=== PATIENT | male | born 1960 | race Caucasian/White ===

== ENCOUNTER 2017-04-02 06:17 | Inpatient (IN) | payer OTHER ==
[~2017-04-02] VITALS: Ht 182.9 cm; Wt 92.0 kg
[~2017-04-02 06:17] MED LIST: ALBU18HF INH; IPRA4AER INH; LOSA25TA5 PO; TIOT18CA INH
[2017-04-02] MEDS ORDERED: VANCOMYCIN 1,000 MG ONE (06:33)
[2017-04-02] MEDS ORDERED: BUPIVACAINE/PF 0.5% ONE (06:33)
[2017-04-02] MEDS ORDERED: THROMBIN 20,000 UNIT VIAL TP ONE (06:33)
[2017-04-02] MEDS ORDERED: EPINEPHRINE 1 MG/ML, 1ML ONE (06:33)
[2017-04-02] MEDS ORDERED: TRANEXAMIC ACID 100 MG/ML, 10ML ONE (06:33)
[2017-04-02] MEDS ORDERED: LACTATED RINGERS 1,000 ML IV SCH (06:52)
[2017-04-02 06:56] VITALS: BP 122/85
[2017-04-02] MEDS ORDERED: LIDOCAINE 1%, 2ML SQ PRN (07:00)
[2017-04-02] MEDS ORDERED: COMBIVENT INH (07:14)
[2017-04-02] MEDS ORDERED: CARV12.52 PO (07:14)
[2017-04-02] MEDS ORDERED: LOSARTAN/HCT PO (07:14)
[2017-04-02] MEDS ORDERED: HYDR-3240 PO (07:14)
[2017-04-02] MEDS ORDERED: UMEC1DIS INH (07:14)
[2017-04-02] MEDS ORDERED: FENTANYL PF 100 MCG/2ML ONE ×4 (07:20→10:00)
[2017-04-02] MEDS ORDERED: MIDAZOLAM 1 MG/ML, 2ML ONE (07:21)
[2017-04-02] MEDS ORDERED: CEFAZOLIN 1,000 MG ONE ×2 (07:23)
[2017-04-02] MEDS ORDERED: PROPOFOL 10 MG/ML, 20ML ONE (07:23)
[2017-04-02] MEDS ORDERED: ROCURONIUM 10 MG/ML ONE (07:23)
[2017-04-02] MEDS ORDERED: VANCOMYCIN PER PHARMACY MC PRN (07:30)
[2017-04-02] MEDS ORDERED: VANCOMYCIN 1,600 MG in SODIUM CHLORIDE 0.9% 250 ML IV ONE (07:30)
[2017-04-02] MEDS ORDERED: ACETAMINOPHEN 325 MG TABLET PO PRN (08:00)
[2017-04-02] MEDS ORDERED: PROMETHAZINE 25 MG/ML, 1ML IV PRN (08:00)
[2017-04-02] MEDS ORDERED: ONDANSETRON 2MG/ML, 2ML IVPush PRN ×2 (08:00→14:00)
[2017-04-02] MEDS ORDERED: PNEUMOCOCCAL 23 VACCINE IM-VACC ONE (08:00)
[2017-04-02] MEDS ORDERED: OXYcodone 5 MG/5 ML ORAL.SOL UDC PO PRN (08:00)
[2017-04-02] MEDS ORDERED: ALBUTEROL SULFATE 2.5 MG/3 ML NPPB PRN (08:00)
[2017-04-02] MEDS ORDERED: LABETALOL 5MG/ML, 20ML IV PRN (08:00)
[2017-04-02] MEDS ORDERED: MEPERIDINE/PF 25MG/0.5ML IVPush PRN (08:00)
[2017-04-02] MEDS ORDERED: hydrALAzine 20 MG/ML, 1ML IV PRN (08:00)
[2017-04-02] MEDS ORDERED: METOPROLOL 1 MG/ML, 5ML ONE (08:40)
[2017-04-02] MEDS ORDERED: NEOSTIGMINE 1 MG/ML, 10ML ONE (08:58)
[2017-04-02] MEDS ORDERED: GLYCOPYRROLATE 0.4 MG/2 ML, 2ML ONE (08:58)
[2017-04-02] MEDS ORDERED: HYDROmorphone 1 MG/ML, 1ML ONE ×3 (10:00→11:27)
[2017-04-02] MEDS: HYDROmorphone 1 MG/ML, 1ML IV PRN ×5 (10:01→11:29)
[2017-04-02] MEDS: FENTANYL PF 100 MCG/2ML IV PRN ×2 (10:05→10:20)
[2017-04-02] MEDS ORDERED: ONDANSETRON 2MG/ML, 2ML ONE (10:11)
[2017-04-02] MEDS ORDERED: OXYcodone 5 MG/5 ML ORAL.SOL UDC ONE (11:02)
[2017-04-02] MEDS ORDERED: ACETAMINOPHEN 650 MG/20.3 ML UDC ONE (11:02)
[2017-04-02] MEDS ORDERED: TRANEXAMIC ACID 1,000 MG in SODIUM CHLORIDE 0.9% 100 ML IVPB ONE (13:00)
[2017-04-02] MEDS ORDERED: OXYcodone IR 5MG TABLET PO PRN (13:30)
[2017-04-02] MEDS ORDERED: DIAZEPAM 5 MG TABLET PO PRN (13:30)
[2017-04-02] MEDS ORDERED: KETOROLAC 30 MG/1 ML IV PRN (13:30)
[2017-04-02] MEDS ORDERED: ACETAMINOPHEN 500 MG TABLET PO PRN (13:30)
[2017-04-02] MEDS ORDERED: DEXAMETHASONE 6 MG in SODIUM CHLORIDE 0.9% 50 ML IV PRN (13:30)
[2017-04-02] MEDS ORDERED: SODIUM CHLORIDE 0.9% 1,000 ML IV SCH (13:30)
[2017-04-02] MEDS ORDERED: SENNA/DOCUSATE TABLET PO PRN (13:30)
[2017-04-02] MEDS: NICOTINE 21 MG/24 HR PATCH.TD24 TD SCH (13:48)
[2017-04-02] MEDS ORDERED: BISACODYL 10 MG SUPP PR PRN (14:00)
[2017-04-02] MEDS: ALBUTEROL MC SCH ×2 (14:00→20:48)
[2017-04-02] MEDS ORDERED: ONDANSETRON ODT 4 MG PO PRN (14:00)
[2017-04-02] MEDS ORDERED: SCOPOLAMINE 1MG PATCH TD SCH (14:00)
[2017-04-02] MEDS ORDERED: LORazepam 2 MG/ML, 1ML IV PRN (14:00)
[2017-04-02] MEDS ORDERED: PROMETHAZINE 25 MG SUPP PR PRN (14:00)
[2017-04-02] MEDS ORDERED: DIPHENHYDRAMINE 25 MG CAPSULE PO PRN (14:00)
[2017-04-02] MEDS ORDERED: MAGNESIUM HYDROXIDE 8%, 30ML UDC PO PRN (14:00)
[2017-04-02] MEDS ORDERED: morphine SULFATE 10 MG/ML, 1ML IV PRN (14:00)
[2017-04-02] MEDS: IPRATROPIUM MC SCH ×2 (14:00→20:48)
[2017-04-02] MEDS ORDERED: LORazepam 1MG TABLET PO PRN (14:00)
[2017-04-02] MEDS ORDERED: ALUMINUM/MAG/SIMETHICONE 30 ML UDC PO PRN (14:00)
[2017-04-02] MEDS ORDERED: ZOLPIDEM 5MG TABLET PO PRN (14:00)
[2017-04-02] MEDS ORDERED: PROMETHAZINE 25 MG/ML, 1ML IM PRN (14:00)
[2017-04-02 14:18] VITALS: BP 111/73
[2017-04-02] MEDS: POTASSIUM CHLORIDE 20 MEQ in D5%-0.45% NACL 1,000 ML IV SCH ×2 (15:08→20:56)
[2017-04-02] MEDS ORDERED: CEFAZOLIN PMX 2GM/100ML 100 ML IVPB SCH (16:00)
[2017-04-02] MEDS: CEFAZOLIN 2,000 MG in DEXTROSE 5% 50 ML IVPB SCH ×2 (16:06→23:49)
[2017-04-02] MEDS: OXYcodone IR 5MG TABLET PO PRN ×2 (16:06→20:51)
[2017-04-02] MEDS: CARVEDILOL 12.5 MG TABLET PO SCH (17:20)
[2017-04-02] MEDS: ASPIRIN 325 MG TABLET EC PO SCH (17:20)
[2017-04-02 19:38] VITALS: BP 125/76
[2017-04-02] MEDS: SODIUM CHLORIDE FLUSH 10ML SYR IVF SCH (20:48)
[2017-04-02] MEDS: DOCUSATE 100 MG CAPSULE PO SCH (20:51)
[2017-04-02] MEDS: PREGABALIN 75 MG CAPSULE PO SCH (20:51)
[2017-04-02 23:30] VITALS: BP 117/74
[2017-04-03] MEDS: OXYcodone IR 5MG TABLET PO PRN ×4 (02:51→18:07)
[2017-04-03 03:52] VITALS: BP 131/77
[2017-04-03] MEDS: ALBUTEROL MC SCH ×3 (04:01→22:00)
[2017-04-03] MEDS: IPRATROPIUM MC SCH ×3 (04:01→22:00)
[2017-04-03 04:59] LABS: HEMATOCRIT 38.6 % (39.2-51.8); HEMOGLOBIN 12.9 g/dL (13.7-18.0)
[2017-04-03] MEDS: CARVEDILOL 12.5 MG TABLET PO SCH ×2 (05:44→18:07)
[2017-04-03] MEDS: ASPIRIN 325 MG TABLET EC PO SCH ×2 (05:44→18:07)
[2017-04-03 06:45] VITALS: BP 109/68
[2017-04-03 07:48] VITALS: BP 119/81
[2017-04-03] MEDS: MULTIVITAMINS/MINERALS TABLET PO SCH (07:52)
[2017-04-03] MEDS: DOCUSATE 100 MG CAPSULE PO SCH ×2 (07:52→21:06)
[2017-04-03] MEDS: LOSARTAN 25MG TABLET PO SCH (07:52)
[2017-04-03] MEDS: PREGABALIN 75 MG CAPSULE PO SCH ×2 (07:52→21:06)
[2017-04-03] MEDS: ELLIPTA INH SCH (08:00)
[2017-04-03] MEDS: POTASSIUM CHLORIDE 20 MEQ in D5%-0.45% NACL 1,000 ML IV SCH ×2 (11:17→19:33)
[2017-04-03] MEDS: SODIUM CHLORIDE FLUSH 10ML SYR IVF SCH ×2 (11:28→21:00)
[2017-04-03] MEDS: NICOTINE 21 MG/24 HR PATCH.TD24 TD SCH (11:28)
[2017-04-03 14:27] VITALS: BP 114/58
[2017-04-03] MEDS ORDERED: KETOROLAC 30 MG/1 ML IVPush PRN (15:30)
[2017-04-03 19:16] VITALS: BP 127/70
[2017-04-04 00:33] VITALS: BP 109/69
[2017-04-04] MEDS ORDERED: OXYC10TA6 PO (00:43)
[2017-04-04] MEDS ORDERED: CEPH-368 PO (00:44)
[2017-04-04] MEDS ORDERED: ASPI500T4 PO (00:45)
[2017-04-04] MEDS ORDERED: DOCU-131 PO (00:48)
[2017-04-04] MEDS ORDERED: PREG75CA PO (00:49)
[2017-04-04] MEDS: OXYcodone IR 5MG TABLET PO PRN ×2 (02:07→08:27)
[2017-04-04] MEDS: POTASSIUM CHLORIDE 20 MEQ in D5%-0.45% NACL 1,000 ML IV SCH (05:08)
[2017-04-04] MEDS: ALBUTEROL MC SCH (05:08)
[2017-04-04] MEDS: IPRATROPIUM MC SCH (05:08)
[2017-04-04 05:28] LABS: HEMATOCRIT 33.8 % (39.2-51.8); HEMOGLOBIN 11.6 g/dL (13.7-18.0)
[2017-04-04] MEDS: ASPIRIN 325 MG TABLET EC PO SCH (05:46)
[2017-04-04] MEDS: CARVEDILOL 12.5 MG TABLET PO SCH (05:46)
[2017-04-04] MEDS ORDERED: PNEUMOCOCCAL 23 VACCINE IM-VACC ONE (07:00)
[2017-04-04] MEDS: LOSARTAN 25MG TABLET PO SCH ×2 (08:27→08:40)
[2017-04-04] MEDS: DOCUSATE 100 MG CAPSULE PO SCH (08:27)
[2017-04-04] MEDS: MULTIVITAMINS/MINERALS TABLET PO SCH (08:28)
[2017-04-04] MEDS: PREGABALIN 75 MG CAPSULE PO SCH (08:28)
[2017-04-04] MEDS: ELLIPTA INH SCH (08:28)
[2017-04-04] MEDS: SODIUM CHLORIDE FLUSH 10ML SYR IVF SCH (08:37)
[2017-04-04 08:38] VITALS: BP 100/55
[2017-04-04] MEDS: NICOTINE 21 MG/24 HR PATCH.TD24 TD SCH (12:40)
[2017-04-04 13:13] VITALS: BP 100/66
== END 2017-04-04 13:40 | disposition home or self-care (01) | DRG 470 ==
LOC: ORIP 06:17 → 4NOR 12:08
PROVIDERS: ADMIT Orthopaedic Surgery Orthopaedic Surgery of the Spine; ATTEND Orthopaedic Surgery Orthopaedic Surgery of the Spine
PROC: 0SRB04Z Replacement of Left Hip Joint with Ceramic on Polyethylene Synthetic Substitute, Open Approach (ICD-10-PCS; principal; 2017-04-02 08:00)
DX: M87.852 Other osteonecrosis, left femur (principal); M19.90 Unspecified osteoarthritis, unspecified site
CPT/HCPCS: 36415; 71010; 81003; 85014; 85018; 85610; 85651; 85730; 86850; 86900; 87081; 90732; 93005; J0171; J0690; J1170; J2250; J2405; J2550; J2704; J2710; J3010; J3370; J3480; J3490; C1776; J2270; J7050; J7120

== ENCOUNTER 2018-08-08 12:15 | Emergency (ER) | payer SELFPAY ==
[~2018-08-08] VITALS: Ht 180.3 cm; Wt 90.9 kg
[~2018-08-08 12:15] MED LIST changes: +ASPI500T4 PO; +CARV12.52 PO; +CEPH-368 PO; +COMBIVENT INH; +DOCU-131 PO; +HYDR-3240 PO; +LOSA25TA25 PO; -LOSA25TA5 PO; +LOSARTAN/HCT PO; +OXYC10TA6 PO; +PREG75CA PO; +UMEC1DIS INH
--- NOTE | 2018-08-08 13:01 | NUR ---
Pt to room from lobby.
--- NOTE | 2018-08-08 13:23 | NUR ---
PT PRESENTED TO ED WITH CHEST TIGHTNESS AND SHORTNESS OF BREATH FOR A FEW DAYS. PT HAS BEEN OUT OF HIS BP MEDICATIONS SINCE JUNE. PT A&OX4. EKG DONE AND PRESENTED TO MD. PT PLACED IN ROOM AND PLACED ON BP AND CONT. PULSE OXIMETER. ASSESSMENT COMPLETED. MD HAS SEEN PT AND ORDERS RECEIVED. CALL LIGHT IN REACH.
[2018-08-08 13:36] LABS: BASOPHILS # (AUTO) 0.03 x10^3/uL (0-0.1); BASOPHILS % (AUTO) 0 % (0-1); EOSINOPHILS # (AUTO) 0.11 x10^3/uL (0-0.4); EOSINOPHILS % (AUTO) 1 % (1-7); LYMPHOCYTES # (AUTO) 1.26 x10^3/uL (1-3.4); LYMPHOCYTES % (AUTO) 14 % (22-44); MD NO; MEAN CORPUSCULAR HEMOGLOBIN 35.3 pg (27.5-34.5); MEAN CORPUSCULAR HGB CONC 33.4 g/dL (33.2-36.2); MEAN CORPUSCULAR VOLUME 105.7 fL (81-97); MEAN PLATELET VOLUME 8.4 fL (7.4-10.4); MONOCYTES # (AUTO) 0.54 x10^3/uL (0.2-0.8); MONOCYTES % (AUTO) 6 % (2-9); NEUTROPHILS # (AUTO) 7.21 x10^3/uL (1.8-6.8); NEUTROPHILS % (AUTO) 79 % (42-75); PLATELET COUNT 278 x10^3/uL (130-400); RED CELL DISTRIBUTION WIDTH 15.2 % (9.4-14.8)
[2018-08-08 13:46] LABS: ALBUMIN 3.6 g/dL (3.4-5.0); ANION GAP 5 mmol/L (5-15); CALCIUM 8.8 mg/dL (8.5-10.1); CHLORIDE 111 mmol/L (98-107); CREATININE 1.02 mg/dL (0.7-1.3)
[2018-08-08 13:50] LABS: TROPONIN I < 0.015 ng/mL (0.000-0.045)
[2018-08-08 13:51] LABS: INTERNATIONAL NORMALIZED RATIO 0.96 (0.93-1.1); PROTHROMBIN TIME 10.1 Seconds (9.6-11.5)
--- NOTE | 2018-08-08 14:35 | NUR ---
PT UP FOR RECHECK.
[2018-08-08] MEDS ORDERED: LOSA1TAB7 PO (14:50)
[2018-08-08 15:01] VITALS: BP 137/75
== END 2018-08-08 15:04 | disposition home or self-care (01) ==
LOC: ED 15:03
DX: R07.89 Other chest pain (principal); I10 Essential (primary) hypertension; J44.9 Chronic obstructive pulmonary disease, unspecified; F17.200 Nicotine dependence, unspecified, uncomplicated
CPT/HCPCS: 36415; 71045; 80048; 82040; 84484; 85025; 85610; 85730; 93005; 99284

== ENCOUNTER 2019-06-28 12:33 | Emergency (ER) | payer OTHER ==
[~2019-06-28] VITALS: Ht 180.3 cm; Wt 86.4 kg
[~2019-06-28 12:33] MED LIST changes: +LOSA1TAB7 PO
[2019-06-28 13:21] VITALS: BP 191/107
[2019-06-28 13:24] LABS: BASOPHILS # (AUTO) 0.04 x10^3/uL (0-0.1); BASOPHILS % (AUTO) 1 % (0-1); EOSINOPHILS # (AUTO) 0.16 x10^3/uL (0-0.4); EOSINOPHILS % (AUTO) 2 % (1-7); LYMPHOCYTES % (AUTO) 17 % (22-44); MD NO; MEAN CORPUSCULAR HEMOGLOBIN 36.1 pg (27.5-34.5); MEAN CORPUSCULAR HGB CONC 33.5 g/dL (33.2-36.2); MEAN CORPUSCULAR VOLUME 107.8 fL (81-97); MEAN PLATELET VOLUME 8.9 fL (7.4-10.4); MONOCYTES # (AUTO) 0.41 x10^3/uL (0.2-0.8); MONOCYTES % (AUTO) 5 % (2-9); NEUTROPHILS # (AUTO) 5.68 x10^3/uL (1.8-6.8); NEUTROPHILS % (AUTO) 75 % (42-75); PLATELET COUNT 241 x10^3/uL (130-400); RED BLOOD COUNT 4.89 x10^6/uL (4.38-5.82); RED CELL DISTRIBUTION WIDTH 14.4 % (9.4-14.8)
--- NOTE | 2019-06-28 13:28 | NUR ---
PT STATES HE HAS HAD COUGH, SOB, WHITLEY SYMPTOMS FOR APPROX 1 WEEK. PT DENIES CP AT THIS TIME, EKG DONE IN TRIAGE. PT STATES HE HAS BEEN OUT OF HIS BP MEDS X3 WEEKS, BP 191/107, ERMD AWARE. PT TO CARD MONITOR, CONT PULSE OX, BP MONITOR
[2019-06-28] MEDS ORDERED: LOSARTAN 50MG TABLET PO ONE (13:30)
[2019-06-28 13:36] LABS: ALBUMIN 3.4 g/dL (3.4-5.0); ANION GAP 7 mmol/L (5-15); CALCIUM 8.7 mg/dL (8.5-10.1); CHLORIDE 106 mmol/L (98-107)
[2019-06-28 13:40] LABS: ALANINE AMINOTRANSFERASE 68 U/L (12-78); ALKALINE PHOSPHATASE 90 U/L (45-117); BILIRUBIN,TOTAL 0.7 mg/dL (0.2-1.0); TOTAL PROTEIN 8.4 g/dL (6.4-8.2); TROPONIN I < 0.015 ng/mL (0.000-0.045)
--- NOTE | 2019-06-28 14:05 | NUR ---
MEDICATION ARRIVED FROM PHARMACY, PT MEDICATED PER MAR
== END 2019-06-28 14:50 | disposition home or self-care (01) ==
LOC: ED 14:38
DX: J44.1 Chronic obstructive pulmonary disease with (acute) exacerbation (principal); I10 Essential (primary) hypertension
CPT/HCPCS: 36415; 71046; 80053; 83880; 84484; 85025; 93005; 99284